=== PATIENT | female | born 1955 | race Caucasian/White ===

== ENCOUNTER 2018-03-26 12:52 | Day surgery (SDC) | payer OTHER ==
[~2018-03-26 12:52] MED LIST: Buffered Lidocaine 0.9% SYRIN* 5 ML/SYR SYRINGE INTRADERM ONE
[2018-03-26] MEDS ORDERED: fentaNYL* 50 MCG/ML 2 ML VIAL (100 MCG VIAL) ONE (13:55)
[2018-03-26] MEDS ORDERED: Midazolam* 1 MG/ML 2 ML VIAL (2 MG) ONE (13:55)
[2018-03-26] MEDS ORDERED: Neomycin/Polymy/Dex OPHTH.OIN* 3.5 GM ONE (15:13)
[2018-03-26] MEDS ORDERED: Tetracaine 0.5% OPTH.SOL 4 ML* 1 DROP BTL ONE (15:13)
[2018-03-26] MEDS ORDERED: Lidocaine 1%* 5 ML VIAL ONE (15:13)
[2018-03-26] MEDS ORDERED: Tropicamide 1% OPTH.SOL* BTL ONE (15:13)
[2018-03-26] MEDS ORDERED: Phenylephrine 2.5% OPTH.SOL* 2 ML BTL ONE (15:13)
[2018-03-26] MEDS ORDERED: Cyclopentolate 1% OPTH.SOL* 2 ML BTL ONE (15:13)
[2018-03-26] MEDS ORDERED: Ketorolac 0.5% OPHTH (NF) 0.5 % 5 ML BTL ONE (15:13)
[2018-03-26 15:21] VITALS: BP 126/74
--- NOTE | 2018-03-26 22:24 | OP ---
OPERATIVE REPORT: DATE OF OPERATION: 03/26/18 - [facility] DATE OF : 51 SURGEON: Dr. Jorge A Sullivan. RELIGIOUS RITUAL SLAUGHTERER: None. ANESTHESIA: Topical with intravenous sedation. PRE-OP DIAGNOSIS: Cataract, right eye. POST-OP DIAGNOSIS: Cataract, right eye. OPERATIVE PROCEDURE: Phacoemulsification and cataract extraction with posterior chamber intraocular lens implant, right eye. COMPLICATIONS: None. BLOOD LOSS: None. OPERATIVE FINDINGS: The patient was brought to the operating room and received a small amount of intravenous sedation. A drop of tetracaine was placed in right eye. She was prepped and draped in the usual sterile fashion for ophthalmic surgery and attention was directed to the right eye where a speculum was placed. A paracentesis was created at the 11 o'clock position and 0.1 cc of 1 percent preservative-free lidocaine was injected into the anterior chamber followed by DisCoVisc. The eye was digitally stabilized while a 2.75 mm keratome was used to create a triplanar clear corneal incision at the 9 o'clock position. A continuous curvilinear capsulorrhexis was created with a cystotome and Utrata forceps. BSS on a cannula was used to hydrodissect the lens from the capsule. Phacoemulsification was performed in a [id number]-vzhulzi technique to create four fragments which were removed. Residual cortical material was removed with irrigation and aspiration. DisCoVisc was used to inflate the capsular bag and an AU00T0 19.5 diopter lens was folded and inserted into the capsular bag. DisCoVisc was removed using irrigation and aspiration. BSS on a cannula was used to hydrate the corneal stroma and seal the wound. At the end of the case the pupil was round and the lens was centered. The eye was of normal pressure and the wound was water tight. The speculum was removed and topical Maxitrol ointment was placed on the surface of the eye. The eye was closed, patched and shielded and the patient was sent to the recovery room in stable condition with post operative instructions and follow-up appointment given. [id number] #: [id number] PALMER
== END 2018-03-26 14:49 | disposition home or self-care (01) ==
LOC: OREAST 12:52
PROVIDERS: ATTEND Ophthalmology
DX: H25.11 Age-related nuclear cataract, right eye (principal); M06.9 Rheumatoid arthritis, unspecified; E03.9 Hypothyroidism, unspecified; F41.8 Other specified anxiety disorders; J45.909 Unspecified asthma, uncomplicated
CPT/HCPCS: A9270-GY; J2250; J3010; V2632

== ENCOUNTER 2018-04-09 09:21 | Day surgery (SDC) | payer OTHER ==
[~2018-04-09 09:21] MED LIST changes: +Acetaminophen TAB* 325 MG PO PRN
[2018-04-09] MEDS ORDERED: fentaNYL* 50 MCG/ML 2 ML VIAL (100 MCG VIAL) ONE (10:38)
[2018-04-09] MEDS ORDERED: Midazolam* 1 MG/ML 2 ML VIAL (2 MG) ONE (10:38)
[2018-04-09 11:20] VITALS: BP 112/79
[2018-04-09] MEDS ORDERED: Cyclopentolate 1% OPTH.SOL* 2 ML BTL ONE (12:53)
[2018-04-09] MEDS ORDERED: Lidocaine 1%* 5 ML VIAL ONE (12:53)
[2018-04-09] MEDS ORDERED: Phenylephrine 2.5% OPTH.SOL* 2 ML BTL ONE (12:53)
[2018-04-09] MEDS ORDERED: Tetracaine 0.5% OPTH.SOL 4 ML* 1 DROP BTL ONE (12:54)
[2018-04-09] MEDS ORDERED: Tropicamide 1% OPTH.SOL* BTL ONE (12:54)
[2018-04-09] MEDS ORDERED: Neomycin/Polymy/Dex OPHTH.OIN* 3.5 GM ONE (12:54)
[2018-04-09] MEDS ORDERED: Ketorolac 0.5% OPHTH (NF) 0.5 % 5 ML BTL ONE (12:54)
--- NOTE | 2018-04-09 16:51 | OP ---
DATE OF OPERATION: 04/09/18 [facility] DATE OF : 51 SURGEON: Dr. Jorge A Sullivan. E M ASSEMBLER: None. ANESTHESIA: Topical with intravenous sedation. PRE-OP DIAGNOSIS: Cataract, left eye. POST-OP DIAGNOSIS: Cataract, left eye. OPERATIVE PROCEDURE: Phacoemulsification and cataract extraction with posterior chamber intraocular lens implant, left eye. COMPLICATIONS: None. BLOOD LOSS: None. DESCRIPTION OF PROCEDURE: The patient was brought to the operating room and received a small amount of intravenous sedation. A drop of Tetracaine was placed in her left eye. She was prepped and draped in the usual sterile fashion for ophthalmic surgery and attention was directed to the left eye where a speculum was placed. A paracentesis was created at the 5 o'clock position and 0.1 cc of 1 percent preservative-free Lidocaine was injected into the anterior chamber followed by DisCoVisc. The eye was digitally stabilized while a 2.75 mm keratome was used to create a triplanar clear corneal incision at the 3 o'clock position. A continuous curvilinear capsulorrhexis was created with a cystotome and Utrata forceps. BSS on a cannula was used to hydrodissect the lens from the capsule. Phacoemulsification was performed in a divide-and- conquer technique to create four fragments which were removed. Residual cortical material was removed with irrigation and aspiration. DisCoVisc was used to inflate the capsular bag and an AU00T0 19.5 diopter lens was folded and inserted into the capsular bag. DisCoVisc was removed using irrigation and aspiration. BSS on a cannula was used to hydrate the corneal stroma and seal the wound. At the end of the case the pupil was round and the lens was centered. The eye was of normal pressure and the wound was water tight. The speculum was removed and topical Maxitrol ointment was placed on the surface of the eye. The eye was closed, patched and shielded and the patient was sent to the recovery room in stable condition with post operative instructions and follow-up appointment given. [id number] #: [id number] PALMER
== END 2018-04-09 11:30 | disposition home or self-care (01) ==
LOC: OREAST 09:21
PROVIDERS: ATTEND Ophthalmology
DX: H25.032 Anterior subcapsular polar age-related cataract, left eye (principal); E03.9 Hypothyroidism, unspecified; M06.9 Rheumatoid arthritis, unspecified
CPT/HCPCS: A9270-GY; J2250; J3010; V2632

== ENCOUNTER 2018-09-09 18:16 | Emergency (ER) | payer MEDICARE, OTHER ==
--- NOTE | 2018-09-10 00:41 | ED ---
Lower Extremity - HPI Summary HPI Summary: This patient is a 63 year old F presenting to ED with a chief complaint of L hip pain with bruising s/p falling on some ice at 1610 on 09/09/17. Patient has not been able to bear much weight on her hip. The patient rates the pain 7/10 in severity. Symptoms aggravated by putting weight on her L leg and palpation. Symptoms alleviated by nothing. - History of Current Complaint Chief Complaint: EDHipPelvisInjury Stated Complaint: FALL, LEFT HIP INJURY Time Seen by Provider: 09/10/18 00:30 Hx Obtained From: Patient Mechanism Of Injury: Fall From A Standing Position Onset of Pain: Immediate Onset/Duration: Hours Severity Initially: Moderate Severity Currently: Moderate Pain Intensity: 7 Pain Scale Used: 0-10 Numeric Timing: Constant, Lasting Hours Location: Is Discrete @ - L hip Associated Signs And Symptoms: Positive: Bruising Aggravating Factor(s): Weight Bearing, Other - palpation Alleviating Factor(s): Nothing - Allergies/Home Medications Allergies/Adverse Reactions: Allergies Allergy/AdvReac Type Severity Reaction Status Date / Time erythromycin base Allergy Nausea Verified 09/09/18 18:35 naproxen Allergy Hives Verified 09/09/18 18:35 PMH/Surg Hx/FS Hx/Imm Hx Endocrine/Hematology History: Reports: Hx Thyroid Disease - HYPOTHYROID Denies: Hx Diabetes Cardiovascular History: Denies: Hx Hypertension, Hx Pacemaker/ICD Respiratory History: Denies: Hx Asthma History: Denies: Hx Renal Disease Musculoskeletal History: Reports: Hx Arthritis - RHEUMATOID, Hx Rheumatoid Arthritis Denies: Hx Osteoporosis Sensory History: Reports: Hx Cataracts - BILATERAL, Hx Contacts or Glasses - GLASSES Denies: Hx Hearing Aid Opthamlomology History: Reports: Hx Cataracts - BILATERAL, Hx Contacts or Glasses - GLASSES Neurological History: Reports: Hx Migraine - HX OF - PRN [place]AN Psychiatric History: Reports: Hx Anxiety - ON MEDICATION FOR, Hx Depression - ON MEDICATION FOR Denies: Hx Panic Disorder - Cancer History Hx Chemotherapy: No Hx Radiation Therapy: No - Surgical History Surgery Procedure, Year, and Place: APPY.BILATERAL HAND CARPAL TUNNEL REPAIR Hx Anesthesia Reactions: No Infectious Disease History: No Infectious Disease History: Denies: Traveled Outside the [place] in Last 30 Days - Family History Known Family History: Positive: Other Family History: breast CA - mother - Social History Alcohol Use: Rare Substance Use Type: Reports: None Smoking Status (MU): Never Smoked Tobacco Have You Smoked in the Last Year: No Review of Systems Negative: Fever Positive: Other - L hip pain with bruising All Other Systems Reviewed And Are Negative: Yes Physical Exam - Summary Physical Exam Summary: Appearance: Well-appearing, Well-nourished, lying in bed comfortably Skin: Warm, dry, no obvious rash. Large hematoma with ecchymosis over L greater trochanter. Eyes: sclera anicteric, no conjunctival pallor ENT: mucous membranes moist, pharynx appears normal Neck: Supple, nontender Respiratory: Clear to auscultation, no signs of respiratory distress Cardiovascular: Normal S1, S2. No murmurs. Normal distal pulses in tibial and radial bilaterally. Abdomen: Soft, nontender, normal active bowel sounds present Musculoskeletal: Pelvis stable without pain of rocking. No pain with ROM of hip and with either internal or external rotation. L extremities seem normal otherwise. Good circulation of lower extremities. Neurological: A&Ox3, awake and alert, mentation is normal, speech is fluent and appropriate Psychiatric: affect is normal, does not appear anxious or depressed Triage Information Reviewed: Yes Vital Signs On Initial Exam: Initial Vitals Temp Pulse Resp BP Pulse Ox 98.6 F 79 16 143/87 96 09/09/18 18:29 09/09/18 18:29 09/09/18 18:29 09/09/18 18:29 09/09/18 18:29 Vital Signs Reviewed: Yes Diagnostics - Vital Signs Vital Signs Temp Pulse Resp BP Pulse Ox 09/09/18 23:30 98.6 F 82 16 117/101 98 09/09/18 21:10 98.2 F 84 20 132/74 96 09/09/18 18:29 98.6 F 79 16 143/87 96 - Laboratory Lab Statement: Any lab studies that have been ordered have been reviewed, and results considered in the medical decision making process. - Radiology L hip/pelvis XR Radiology Interpretation Completed By: ED Physician Summary of Radiographic Findings: Negative XR for fracture. Pending radiologist official interpretation. Lower Extremity Course/Dx - Course Assessment/Plan: This patient is a 63 year old F presenting to ED with a chief complaint of L hip pain with bruising s/p falling on some ice at 1610 on 1/28/ 18. L hip/pelvis XR is negative XR for fracture. Consulted Dr. Espinoza who recommended that the patient follow up in his office and that no further workup is needed now. This patient will be discharged with dx of hematoma of L hip. Patient is agreeable with this plan. - Diagnoses Differential Diagnosis/HQI/PQRI: Positive: Other - hematoma of L hip Provider Diagnoses: Hematoma of left hip - Physician Notifications Discussed Care Of Patient With: Ino Espinoza Time Discussed With Above Provider: 00:37 Instructed by Provider To: Other - Consulted Dr. Espinoza who recommended that the patient follow up in his office and that no further workup is needed now. Discharge - Sign-Out/Discharge Documenting (check all that apply): Patient Departure - discharge Patient Received Moderate/Deep Sedation with Procedure: No - Discharge Plan Condition: Stable Disposition: HOME Prescriptions: Hydrocodone/Acetaminophen [Vicodin 5-300 mg Tablet] 1 each PO Q4HR PRN #14 tablet MDD 4 tabs PRN Reason: Pain Patient Education Materials: Hematoma (ED) Referrals: Ino Espinoza MD [Medical Doctor] - Additional Instructions: I would like to have one of our general surgeons take a look at this hematoma within the next few days. Occasionally there are complications with healing that they would be able to help you with. In the meantime the mainstays of treatment are ice and rest, and pain medications. - Billing Disposition and Condition Condition: STABLE Disposition: Home - Attestation Statements Document Initiated by Brendon: Yes Documenting Scribe: Trev Lelsie Provider For Whom Brendon is Documenting (Include Credential): Karlos Zhang MD Scribe Attestation: Trev Zavala, scribed for Karlos Zhang MD on 09/11/18 at 2319. Scribe Documentation Reviewed: Yes Provider Attestation: The documentation as recorded by the Trev stock accurately reflects the service I personally performed and the decisions made by me, Karlos Zhang MD Status of Scribe Document: Viewed
[2018-09-10 00:52] VITALS: BP 131/86
== END 2018-09-10 00:51 | disposition home or self-care (01) ==
LOC: ED 18:16
DX: S70.02XA Contusion of left hip, initial encounter (principal); W00.0XXA Fall on same level due to ice and snow, initial encounter; Y92.9 Unspecified place or not applicable; E03.9 Hypothyroidism, unspecified
CPT/HCPCS: 99283